=== PATIENT | female | born 1990 | race Caucasian/White ===

== ENCOUNTER 2017-05-28 17:29 | Emergency (ER) | payer BC, OTHER ==
[~2017-05-28] VITALS: Ht 161.3 cm; Wt 94.3 kg
[~2017-05-28 17:29] MED LIST: CLON0.5T PO
[2017-05-28 17:35] VITALS: BP 156/99
--- NOTE | 2017-05-28 18:25 | NUR ---
Patient ambulated to bed 6. [employer]ELOPER evaluating patient at bedside.
--- NOTE | 2017-05-28 18:37 | NUR ---
26/F c/o elevated blood pressure for the past few days. Pt states "I've been having bad anxiety the past few days and I haven't been able to get my blood pressure down." BP 141/70. Pt is AOX4, ambulatory with steady gait. VSS at this time.
--- NOTE | 2017-05-28 18:39 | NUR ---
Patient being evaluated by physician at bedside.
[2017-05-28] MEDS ORDERED: LORazepam 0.5 MG TAB PO ONE (18:45)
[2017-05-28 18:47] VITALS: BP 141/79
--- NOTE | 2017-05-28 18:48 | NUR ---
Patient discharged with v/s stable. Written and verbal after care instructions given and explained. Patient verbalized understanding. Ambulatory with steady gait. All questions addressed prior to discharge. Advised to follow up with PMD.
== END 2017-05-28 18:48 | disposition home or self-care (01) ==
LOC: MED 17:29
DX: I10 Essential (primary) hypertension (principal); F41.9 Anxiety disorder, unspecified
CPT/HCPCS: 99283

== ENCOUNTER 2017-06-30 17:38 | Emergency (ER) | payer SELFPAY ==
[~2017-06-30] VITALS: Ht 165.1 cm; Wt 91.9 kg
[2017-06-30 17:49] VITALS: BP 149/92
[2017-06-30] MEDS ORDERED: ATI.5 PO (20:38)
[2017-06-30] MEDS ORDERED: LISI-420 PO (20:38)
[2017-06-30 20:45] VITALS: BP 144/90
== END 2017-06-30 20:46 | disposition home or self-care (01) ==
LOC: MED 17:38
DX: I10 Essential (primary) hypertension (principal); R07.89 Other chest pain
CPT/HCPCS: 93005; 99283

== ENCOUNTER 2018-01-25 20:45 | Emergency (ER) | payer OTHER ==
[~2018-01-25] VITALS: Ht 160 cm; Wt 97.5 kg
[~2018-01-25 20:45] MED LIST changes: +ATI.5 PO; +LISI-420 PO
[2018-01-25 20:59] VITALS: BP 163/102
--- NOTE | 2018-01-25 21:09 | NUR ---
PT.AMBULATED TO [facility], MADE AWARE OF PT. STATUS.
--- NOTE | 2018-01-25 21:41 | NUR ---
PT TAKEN TO CHAIR A
--- NOTE | 2018-01-25 21:50 | NUR ---
27 Y/O F W/C/O HIGH BP/TACHYCARDIA WITH CHEST DISCOMFORT X 30 MINS. PT. PT.CHECK AT HOME 151/100, PR127 HX.HTN, LISINOPRIL 20 MG QD, NOT SURE IF SHE TOOK IT TODAY. ANXIETY
[2018-01-25 22:50] VITALS: BP 144/94
== END 2018-01-25 22:50 | disposition home or self-care (01) ==
LOC: MED 20:45
DX: I10 Essential (primary) hypertension (principal)
CPT/HCPCS: 93005; 99284

== ENCOUNTER 2024-06-24 17:17 | Emergency (ER) | payer OTHER ==
[~2024-06-24] VITALS: Ht 162.6 cm; Wt 104.8 kg
[~2024-06-24 17:17] MED LIST changes: +CLON-1201 PO; -CLON0.5T PO; -LISI-420 PO; +LISI-953 PO
[2024-06-24 17:31] VITALS: BP 150/97; PULSE 82; RESP 22; TEMP 97.4; O2SAT 98
[2024-06-24 18:12] VITALS: O2SAT 98
[2024-06-24 18:14] LABS: APPEARANCE,URINE CLEAR (CLEAR); BILIRUBIN,URINE 1+ (NEGATIVE); BLOOD, URINE 3+ (NEGATIVE); COLOR,URINE YELLOW (YELLOW); LEUKOCYTE ESTERASE ,URINE TRACE (NEGATIVE); NITRITE, URINE NEGATIVE (NEGATIVE); PROTEIN,URINE 2+ (NEGATIVE); UGLUCOSE NEGATIVE (NEGATIVE)
[2024-06-24 18:23] LABS: ICTOTEST NEGATIVE (NEGATIVE)
[2024-06-24 18:32] LABS: BACTERIA,URINE >30 (MANY) /HPF (None Seen); MUCUS,URINE 4+ /LPF (None Seen); SQUAMOUS EPITHELIAL CELL,UR >10 (MANY) /LPF (0-3 (FEW))
[2024-06-24 18:33] LABS: RBC,URINE TOO NUMEROUS TO COUN /HPF (0-5); WBC,URINE >25 (MANY) /HPF (0-5)
[2024-06-24 19:01] LABS: BASOPHILS # (AUTO) 0.1 K/uL (0.00-0.22); BASOPHILS % (AUTO) 0.7 % (0.0-2.0); EOSINOPHILS # (AUTO) 0.4 K/uL (0-0.4); EOSINOPHILS % (AUTO) 3.2 % (0.0-4.0); HEMATOCRIT 39.7 % (36-48); HEMOGLOBIN 13.1 g/dL (12.0-16.0); LYMPHOCYTES # (AUTO) 1.9 K/uL (2.5-16.5); MEAN CORPUSCULAR HEMOGLOBIN 27 pg (27-31); MEAN CORPUSCULAR HGB CONC 33 g/dL (33-37); MEAN CORPUSCULAR VOLUME 81.2 fL (80-94); MONOCYTES # (AUTO) 0.6 K/uL (0.8-1.0); MONOCYTES % (AUTO) 4.6 % (1.7-9.3); NEUTROPHILS # (AUTO) 10.5 K/uL (1.8-7.7); NEUTROPHILS % (AUTO) 77.5 % (42.2-75.2); PLATELET COUNT (AUTO) 312 K/uL (140-450); RED BLOOD CELL COUNT(AUTO) 4.89 MIL/uL (4.20-5.40); RED CELL DISTRIBUTION WIDTH 14.3 % (11.6-13.7); WHITE BLOOD COUNT (AUTO) 13.6 K/uL (4.8-10.8)
[2024-06-24 19:20] VITALS: BP 171/87; PULSE 89; RESP 20; TEMP 97.4; O2SAT 96
[2024-06-24] MEDS ORDERED: CEPH-588 PO (20:18)
== END 2024-06-24 20:53 | disposition home or self-care (01) ==
LOC: MED 17:17
DX: O03.9 Complete or unspecified spontaneous abortion without complication (principal); O23.41 Unspecified infection of urinary tract in pregnancy, first trimester; N39.0 Urinary tract infection, site not specified; O10.911 Unspecified pre-existing hypertension complicating pregnancy, first trimester; Z3A.09 9 weeks gestation of pregnancy; Z79.899 Other long term (current) drug therapy; Z88.1 Allergy status to other antibiotic agents
CPT/HCPCS: 36415; 76801; 81001; 81025; 84702; 85025; 86900; 86901; 87086; 99284; Q0092